=== PATIENT | female | born 1955 | race Caucasian/White ===

== ENCOUNTER 2018-03-26 06:51 | Day surgery (SDC) | payer BC ==
[~2018-03-26 06:51] MED LIST: Buffered Lidocaine 0.9% SYRIN* 5 ML/SYR SYRINGE INTRADERM ONE
[2018-03-26] MEDS ORDERED: Midazolam* 1 MG/ML 2 ML VIAL (2 MG) ONE (07:59)
[2018-03-26] MEDS ORDERED: fentaNYL* 50 MCG/ML 2 ML VIAL (100 MCG VIAL) ONE (07:59)
[2018-03-26] MEDS ORDERED: Bupivacaine 0.25% SDV* 30 ML ONE (08:05)
[2018-03-26] MEDS ORDERED: Ketorolac INJ* 30 MG/ML 1 ML VIAL ONE (08:26)
[2018-03-26] MEDS ORDERED: Propofol* 10 MG/ML 20 ML BTL IV PUSH ONE (08:26)
[2018-03-26] MEDS ORDERED: Lidocaine 2% PF * 5 ML VIAL ONE (08:26)
[2018-03-26] MEDS ORDERED: Acetaminophen TAB* 325 MG PO PRN (08:40)
[2018-03-26] MEDS ORDERED: Ondansetron INJ* 2 MG/ML VIAL IV PRN (08:40)
[2018-03-26] MEDS ORDERED: Naloxone* 0.4 MG/ML 1 ML VIAL IV PRN (08:40)
--- NOTE | 2018-03-26 09:01 | OP ---
Operative Report - Blank - Operative Report Date of Operation: 03/26/18 Note: Provider: Blaze Emanuel MD DATE OF OPERATION: 03/26/18 - [facility] DATE OF : 51 SURGEON: Blaze Emanuel MD. RESIDENTIAL GLAZIER: MARK Terrazas ANESTHESIOLOGIST: Dr. Soto. ANESTHESIA: Local MAC PRE-OP DIAGNOSIS: Left middle trigger finger. POST-OP DIAGNOSIS: Left middle trigger finger. OPERATIVE PROCEDURE: Left middle trigger finger release with release of A1 joanna. INDICATIONS: Pamela has a left middle trigger finger that has recurred despite injections. We talked about treatment options and they wanted to proceed with surgical release. ESTIMATED BLOOD LOSS: 2 mL. COMPLICATIONS: None. FINDINGS: As expected. DESCRIPTION OF PROCEDURE: Pamela was seen in the preoperative holding area. The correct side, site, and procedure were identified. We came back to the operating room. I infiltrated the operative area with 0.25% Marcaine. The arm was prepped and draped in the usual fashion. Time-out was performed. The arm was exsanguinated with the Esmarch and the tourniquet was inflated to 250 mmHg. I made a 1 cm incision over the affected A1 joanna. Full thickness flaps were bluntly raised off the tendon sheath. Ragnell retractors were placed. I then longitudinally incised the A1 joanna on the radial third of the joanna. The release was completed proximally and distally with the tenotomy scissors. The skin was then closed with 4-0 nylon. The wound was dressed, tourniquet deflated, and the patient was taken to the recovery room in stable condition.
[2018-03-26 09:45] VITALS: BP 124/77
== END 2018-03-26 09:24 | disposition home or self-care (01) ==
LOC: OREAST 06:51
PROVIDERS: ATTEND Orthopaedic Surgery Hand Surgery
DX: M65.332 Trigger finger, left middle finger (principal); I10 Essential (primary) hypertension; R01.1 Cardiac murmur, unspecified; K51.90 Ulcerative colitis, unspecified, without complications
CPT/HCPCS: J1885; J2250; J2704; J3010

== ENCOUNTER 2021-12-17 19:39 | Inpatient (IN) ==
[2021-12-17 23:34] LABS: Urine Appearance Clear; Urine Bilirubin Negative (Negative); Urine Blood Negative (Negative); Urine Color Yellow; Urine Glucose Negative (Negative); Urine Ketones Trace (Negative); Urine Nitrite Negative (Negative); Urine Protein Negative (Negative); Urine Specific Gravity 1.017 (1.002-1.030); Urine Urobilinogen Negative (Negative)
[2021-12-17 23:39] LABS: ABS Basophils 0.1 10^3/ul (0-0.2); ABS Eosinophils 0.2 10^3/ul (0-0.6); ABS Lymphocytes 2.4 10^3/ul (1.0-4.8); ABS Monocytes 0.5 10^3/ul (0-0.8); ABS Neutrophils 5.7 10^3/ul (1.5-7.7); Eosinophil % 2.1 %; Hematocrit 41 % (35-47); Hemoglobin 13.6 g/dL (12.0-16.0); Lymphocyte % 27.5 %; Mean Corpuscular HGB Conc 33 g/dL (31-36); Mean Corpuscular Hemoglobin 32 pg (27-31); Mean Corpuscular Volume 95 fL (80-97); Mean Platelet Volume 9.3 fL (7.4-10.4); Platelet Count 374 10^3/uL (150-450); Red Cell Distribution Width 14 % (10-15); White Blood Count 8.9 10^3/uL (3.5-10.8)
[2021-12-17 23:54] LABS: ALT 11 U/L (7-52); AST 13 U/L (13-39); Albumin 3.8 g/dL (3.2-5.2); Albumin/Globulin Ratio 1.4 (1-3); Alkaline Phosphatase 81 U/L (35-149); Anion Gap 9 mmol/L (2-11); Blood Urea Nitrogen 14 mg/dL (6-24); CO2 Carbon Dioxide 26 mmol/L (22-32); Calcium 9.2 mg/dL (8.6-10.3); Chloride 103 mmol/L (101-111); Globulin 2.7 g/dL (2-4); Glucose 117 mg/dL (70-100); Potassium 3.6 mmol/L (3.5-5.0); Sodium 138 mmol/L (135-145); Total Protein 6.5 g/dL (6.4-8.9); eGFR CKD-EPI 76.1 (>60)
[2021-12-17 23:57] LABS: Urine Benzodiazepine Screen None Detected (None Detect); Urine Cannabinoids Screen None Detected (None Detect); Urine Opiates Screen None Detected (None Detect)
[2021-12-18 00:02] LABS: Acetaminophen < 15 mcg/mL; Alcohol, S < 13 mg/dL (<13); Salicylate < 2.50 mg/dL (<30)
[2021-12-18 00:17] LABS: TSH Ultra Thyroid Stim Horm 1.72 mcIU/mL (0.34-5.60)
[2021-12-18] MEDS ORDERED: Ondansetron ODT 4 mg TAB 4 MG TAB ONE (06:19)
[2021-12-18] MEDS ORDERED: Ondansetron ODT 4 mg TAB 4 MG TAB PO ONE (06:24)
[2021-12-18 07:06] LABS: Rapid COVID-19 Molecular Undetected (Undetected)
[2021-12-18] MEDS ORDERED: [UNRECOGNIZED DRUG - OTHER] PO PRN (09:23)
[2021-12-18] MEDS: Vitamin THERAPEUTIC TAB PO SCH (09:38)
[2021-12-18] MEDS: Cholecalciferol (VIT D3) 1,000 unit TAB PO SCH (12:16)
[2021-12-18] MEDS: Al Hydrox/Mg Hydrox/Simet LIQ 30 ML UDC PO PRN (14:04)
[2021-12-18] MEDS ORDERED: Polyethylene Glycol 3350 17 GM PACKET PO PRN (16:13)
[2021-12-18] MEDS: PTO: Mesalamine 0.375 GM CAP (NF) PO SCH (17:43)
[2021-12-19] MEDS: Cholecalciferol (VIT D3) 1,000 unit TAB PO SCH (08:33)
[2021-12-19] MEDS: Vitamin THERAPEUTIC TAB PO SCH (08:33)
[2021-12-19 08:35] LABS: HDL Cholesterol 63.6 mg/dL
[2021-12-19] MEDS: PTO: Mesalamine 0.375 GM CAP (NF) PO SCH (10:01)
[2021-12-19] MEDS: CMC:Mesalamine 500 mg CAP (NF) PO SCH (21:50)
[2021-12-19] MEDS: Al Hydrox/Mg Hydrox/Simet LIQ 30 ML UDC PO PRN (21:52)
[2021-12-20] MEDS: CMC:Mesalamine 500 mg CAP (NF) PO SCH ×3 (08:05→21:32)
[2021-12-20] MEDS: Vitamin THERAPEUTIC TAB PO SCH (08:05)
[2021-12-20] MEDS: Cholecalciferol (VIT D3) 1,000 unit TAB PO SCH (08:05)
[2021-12-21] MEDS: CMC:Mesalamine 500 mg CAP (NF) PO SCH ×3 (08:26→20:38)
[2021-12-21] MEDS: Cholecalciferol (VIT D3) 1,000 unit TAB PO SCH (08:27)
[2021-12-21] MEDS: Vitamin THERAPEUTIC TAB PO SCH (08:27)
[2021-12-22] MEDS: Vitamin THERAPEUTIC TAB PO SCH (07:46)
[2021-12-22] MEDS: Cholecalciferol (VIT D3) 1,000 unit TAB PO SCH (07:47)
[2021-12-22] MEDS: CMC:Mesalamine 500 mg CAP (NF) PO SCH ×3 (07:50→22:06)
[2021-12-22] MEDS: Al Hydrox/Mg Hydrox/Simet LIQ 30 ML UDC PO PRN (18:49)
[2021-12-23] MEDS: Cholecalciferol (VIT D3) 1,000 unit TAB PO SCH (07:54)
[2021-12-23] MEDS: CMC:Mesalamine 500 mg CAP (NF) PO SCH ×3 (07:55→22:10)
[2021-12-23] MEDS: Vitamin THERAPEUTIC TAB PO SCH (07:55)
[2021-12-24] MEDS: Vitamin THERAPEUTIC TAB PO SCH (07:45)
[2021-12-24] MEDS: CMC:Mesalamine 500 mg CAP (NF) PO SCH ×2 (07:45→15:12)
[2021-12-24] MEDS: Cholecalciferol (VIT D3) 1,000 unit TAB PO SCH (07:46)
[2021-12-24 08:06] VITALS: BP 150/80
== END 2021-12-24 15:23 | disposition home or self-care (01) | DRG 885 ==
LOC: ED 19:39 → BSU 12-18 05:45
PROVIDERS: ADMIT Psychiatry & Neurology Psychiatry; ATTEND Psychiatry & Neurology Psychiatry